=== PATIENT | female | born 1970 | race Caucasian/White ===

== ENCOUNTER 2020-08-16 14:06 | Emergency (ER) | payer MEDICAID ==
[~2020-08-16] VITALS: Ht 154.9 cm; Wt 72.6 kg
[2020-08-16 15:12] LABS: Urine Bacteria FEW /hpf (None Seen); Urine Blood Negative /uL (Negative); Urine Budding Yeast FEW /hpf (None Seen); Urine Specific Gravity 1.008 (1.001-1.035); Urine WBC 8 /hpf (0 - 5)
[2020-08-16 17:30] VITALS: BP 136/78
== END 2020-08-16 18:11 | disposition home or self-care (01) ==
LOC: ER 14:06
DX: M54.16 Radiculopathy, lumbar region (principal); N39.0 Urinary tract infection, site not specified
CPT/HCPCS: 81001